=== PATIENT | female | born 1960 | race Two or more races ===

== ENCOUNTER 2021-08-27 06:58 | Day surgery (SDC) | payer OTHER ==
[2021-08-26 14:08] LABS: EOSINOPHILS # (AUTO) 0.2 X10'3 (0-0.9); LYMPHOCYTES # (AUTO) 1.9 X10'3 (1.1-4.8); LYMPHOCYTES % (AUTO) 38.2 % (21-51); MEAN CORPUSCULAR HEMOGLOBIN 29.3 PG (27.0-31.0); MEAN CORPUSCULAR HGB CONC 33.8 g/dL (33.0-36.5); MEAN CORPUSCULAR VOLUME 86.7 FL (78-98); MEAN PLATELET VOLUME 7.9 FL (7.4-10.4); MONOCYTES # (AUTO) 0.3 X10'3 (0-0.9); MONOCYTES % (AUTO) 6.4 % (2-12); NEUTROPHILS # (AUTO) 2.5 X10'3 (1.8-7.7); NEUTROPHILS % (AUTO) 50.4 % (42-75); PRE OP HEMATOCRIT 36.7 % (35.0-45.0); PRE OP HEMOGLOBIN 12.4 g/dL (12.0-16.0); PRE OP PLATELET COUNT 202 X10'3 (140-440); RED BLOOD COUNT 4.24 X10'6 (4.20-5.60)
[2021-08-26 14:27] LABS: ALBUMIN 3.7 G/DL (3.4-5.0); ALBUMIN/GLOBULIN RATIO 0.9 (1.1-1.5); ALKALINE PHOSPHATASE 174 IU/L (46-116); BLOOD UREA NITROGEN 13 MG/DL (7-18); BUN/CREATININE RATIO 16.5 (6.6-38.0); CALCIUM 8.9 MG/DL (8.5-10.1); CHLORIDE 102 MMOL/L (99-107); CREATININE 0.79 MG/DL (0.40-0.90); PRE OP ALT 26 U/L (30-65); PRE OP ANION GAP 10 (8-16); PRE OP AST 27 U/L (10-37); PRE OP BILIRUB, TOTAL 0.3 MG/DL (0.0-1.0); PRE OP GLUCOSE 106 MG/DL (70-104); PRE OP SODIUM 141 MMOL/L (135-145); TOTAL CARBON DIOXIDE 28.8 MMOL/L (24-32); TOTAL PROTEIN 7.9 G/DL (6.4-8.2); eGFR 74 ML/MIN
[2021-08-27] VITALS (11 sets, daily range): BP systolic 110–158; BP diastolic 68–110
[~2021-08-27] VITALS: Ht 165.1 cm; Wt 76.5 kg
[~2021-08-27 06:58] MED LIST: AMIT10TA6 PO; ATOR20TA66 PO; BUPR8TAB4 SL; CIME200T12 PO; GABA600T13 PO; LORA10TA7 PO; PANT40TA54 PO; POLY17PO10 PO; SERT-432 PO; cefazolin/dext.iso 2gm/50ml IV ONE; famotidine 20mg tablet PO ONE; ringers solution, lacted 1,000 ML IV SCH; vancomycin/NS 1 GM in NS 250 ML IV ONE
[2021-08-27 08:37] LABS: ALBUMIN 3.7 G/DL (3.4-5.0); ALBUMIN/GLOBULIN RATIO 0.9 (1.1-1.5); ALKALINE PHOSPHATASE 179 IU/L (46-116); BLOOD UREA NITROGEN 14 MG/DL (7-18); BUN/CREATININE RATIO 18.4 (6.6-38.0); CALCIUM 8.9 MG/DL (8.5-10.1); CHLORIDE 104 MMOL/L (99-107); CREATININE 0.76 MG/DL (0.40-0.90); PRE OP ALT 25 U/L (30-65); PRE OP ANION GAP 11 (8-16); PRE OP AST 26 U/L (10-37); PRE OP BILIRUB, TOTAL 0.3 MG/DL (0.0-1.0); PRE OP GLUCOSE 105 MG/DL (70-104); PRE OP POTASSIUM 3.7 MMOL/L (3.4-5.1); PRE OP SODIUM 144 MMOL/L (135-145); TOTAL CARBON DIOXIDE 28.8 MMOL/L (24-32); TOTAL PROTEIN 7.9 G/DL (6.4-8.2); eGFR 78 ML/MIN
[2021-08-27] MEDS ORDERED: BUPIVAcaine 0.5% inj/PF 30 ML ONE (09:09)
[2021-08-27] MEDS ORDERED: FENTANYL CITRATE/PF 50 MCG/1 ML VIAL ONE (09:24)
[2021-08-27] MEDS ORDERED: midazolam 1 mg/ML 2ml injection ONE (09:25)
[2021-08-27] MEDS ORDERED: propofol inj 20 ML IV ONE (09:35)
[2021-08-27] MEDS ORDERED: methylPREDNISolone sod succ 125mg/2ml vial ONE (09:52)
[2021-08-27] MEDS ORDERED: proCHLORperazine 10 MG/2 ml inj IV PRN (09:55)
[2021-08-27] MEDS ORDERED: labetalol 20mg/4ml (5mg/ml) syringe IV PRN (09:55)
[2021-08-27] MEDS ORDERED: ondansetron/PF 4mg/2ml inj IV PRN (09:55)
[2021-08-27] MEDS ORDERED: morphine 2 MG/ML inj. syringe IV PRN (09:55)
[2021-08-27] MEDS ORDERED: acetaminophen 1,000mg/100ml IV 100 ML IV PRN (09:55)
[2021-08-27] MEDS ORDERED: morphine 4 MG/ML inj SYRINge IV PRN (09:55)
[2021-08-27] MEDS ORDERED: ringers solution, lacted 1,000 ML IV SCH (09:55)
[2021-08-27] MEDS ORDERED: HYDROmorphone/PF 0.2 MG/ML SYRINGE IV PRN ×2 (09:55)
[2021-08-27] MEDS ORDERED: hydrALAZINE 20mg/ml inj. IV PRN (09:55)
[2021-08-27] MEDS ORDERED: ketorolac trometh. 30mg/ml inj. IV ONE (09:55)
--- NOTE | 2021-08-27 10:16 | NUR ---
Received from OR via [facility] , accompanied by Anesthesiologist DR BURKS and report given by Anesthesiolgist. SPLINT TO THE LUE ALL CDI, GOOD CAP REFILL ON FINGERS, PWD, IV RUE 20G RUNNING LR @ 100, Addendum: 08/27/21 at 1034 by Jacky Townsend RN, RN Amended: Links added.
--- NOTE | 2021-08-27 11:18 | NUR ---
EDUCATED PATIENT ON IS, PATIENT DEMONSTRATED CORRECT USE, PATIENT AGREES TO USE IS AT HOME. O2 SATURATION WAS 93, PATIENT WAS TRANSFERRED TO [facility]. REPORT GIVEN TO PRATIK ELLINGTON. SPOUSE RETRIEVED AND BROUGHT TO PATIENTS ROOM. Addendum: 08/27/21 at 1126 by Jacky Townsend RN, RN Amended: Links added.
--- NOTE | 2021-08-27 13:10 | NUR ---
RECEIVED PATIENT FROM [facility]. [facility]. PATIENT SLEEPY. PUT HER ON 02 AT 5 LITERS DUE TO DESATURATION. SATTING AT 99% ON 5 LITERS. UNABLE TO TITRATE DOWN DUE TO PATIENT SLEEPING. PATIENT EATING AND DRNKING DURING STAY.AT DISCHARGE PATIENT MET DISCHARGE CRITERIA. [facility] O2 STABLE. WHEELED PATIENT OUT TO HER CAR. SHE WAS ALERT AND ORIENTED. SENT BELONGINGS WITH SPOUSE.
--- NOTE | 2021-08-27 13:16 | NUR ---
PATIENT DISCHARGED AT 1316 TO HOME. DISCHARGE CRITERIA MET Addendum: 08/27/21 at 1425 by Malathi Dominguez RN Amended: Links added.
== END 2021-08-27 13:16 | disposition home or self-care (01) ==
LOC: PAS 06:58
PROVIDERS: ATTEND Orthopaedic Surgery
DX: G56.02 Carpal tunnel syndrome, left upper limb (principal); G56.22 Lesion of ulnar nerve, left upper limb; F41.9 Anxiety disorder, unspecified; G89.4 Chronic pain syndrome; I10 Essential (primary) hypertension; E78.5 Hyperlipidemia, unspecified; E66.8 Other obesity; Z68.28 Body mass index [BMI] 28.0-28.9, adult; F32.89 Other specified depressive episodes; M17.11 Unilateral primary osteoarthritis, right knee; K21.9 Gastro-esophageal reflux disease without esophagitis; Z98.890 Other specified postprocedural states; Z90.49 Acquired absence of other specified parts of digestive tract; Z79.899 Other long term (current) drug therapy; Z88.8 Allergy status to other drugs, medicaments and biological substances; Z88.1 Allergy status to other antibiotic agents; Z83.3 Family history of diabetes mellitus
CPT/HCPCS: 36415; 64719; 64721; 80053; 85025; 93005; J2250; J2704; J2930; J3010; J3370; J7030; J7120; S0020; Z7506; Z7512; A4215; A4618; A6455; A7000